=== PATIENT | male | born 1965 | race Caucasian/White ===

== ENCOUNTER 2022-10-10 10:28 | Day surgery (SDC) | payer BC, OTHER ==
[~2022-10-10 10:28] MED LIST: Lactated Ringers 1,000 ML IV SCH
[2022-10-10] MEDS ORDERED: Propofol 200 MG/20 ML SDV ONE ×2 (11:33→11:46)
[2022-10-10] MEDS ORDERED: Lidocaine 2% 5 ML SDV ONE (11:33)
[2022-10-10] MEDS ORDERED: Lactated Ringers 1,000 ML IV SCH (12:15)
[2022-10-10 13:03] VITALS: BP 123/82; PULSE 45
== END 2022-10-10 12:40 | disposition home or self-care (01) ==
LOC: MW.SDS 10:28
PROVIDERS: ATTEND Surgery
DX: K57.30 Diverticulosis of large intestine without perforation or abscess without bleeding (principal); K64.9 Unspecified hemorrhoids; M10.9 Gout, unspecified; I10 Essential (primary) hypertension; E66.9 Obesity, unspecified; Z79.899 Other long term (current) drug therapy; Z87.891 Personal history of nicotine dependence; Z68.36 Body mass index [BMI] 36.0-36.9, adult; Z80.0 Family history of malignant neoplasm of digestive organs
CPT/HCPCS: 45378; J2704; J7120; 00811; J3490

== ENCOUNTER 2024-09-20 02:02 | Emergency (ER) | payer BC ==
[2024-09-20] MEDS: Ketorolac 30 MG/ML SDV IM ONE (04:58)
[2024-09-20 05:05] VITALS: BP 134/88; PULSE 64
== END 2024-09-20 05:36 | disposition home or self-care (01) ==
LOC: MW.ED 02:02
DX: M10.9 Gout, unspecified (principal); I10 Essential (primary) hypertension; Z79.899 Other long term (current) drug therapy
CPT/HCPCS: 96372; 99283; J1885; J8540; 99282